=== PATIENT | male | born 1990 | race Caucasian/White ===

== ENCOUNTER 2016-04-28 10:37 | Outpatient (CLI) | payer OTHER ==
--- NOTE | 2016-04-28 13:16 | DIAGNOSTIC IMAGING REPORT ---
PROCEDURE: XR UPPER GI WITH AIR INDICATION: Dysphagia. Family history of esophageal carcinoma. TECHNIQUE: Double contrast study. Fluoroscopy time, 3.9 minutes; 3200.65 mGy. 75 fluoroscopic images (including cinefluoroscopy). COMPARISON: None. FINDINGS: Pharyngoesophagus demonstrates moderate prominence of the faucial tonsils. Pharyngoesophagus is otherwise normal. There is mild to moderate gastroesophageal reflux. Esophagus is otherwise normal. No constricting or polypoid lesions. Mild thickening of the a gastric folds. Duodenal bulb was normal. 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 IMPRESSION: 1. Moderate prominence of the faucial tonsils. 2. Mild to moderate gastroesophageal reflux. Esophagus is otherwise normal. 3. Mild thickening of the gastric folds. Consider hyperacidity. 4. 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 5. Findings discussed with Dr. Rolan Grande.
== END 2016-04-28 23:00 ==
LOC: XR SRH 10:37
DX: R13.10 Dysphagia, unspecified (principal); K21.9 Gastro-esophageal reflux disease without esophagitis; Q43.3 Congenital malformations of intestinal fixation; K31.89 Other diseases of stomach and duodenum